=== PATIENT | female | born 1980 | race Caucasian/White ===

== ENCOUNTER 2018-02-04 10:40 | Day surgery (SDC) | payer OTHER ==
[2018-02-04] MEDS ORDERED: D5 LR 1000 ML 1,000 ML IV ONE ×2 (11:09→11:28)
[2018-02-04] MEDS ORDERED: DIPRIVAN VIAL 20 ML ONE (12:15)
[2018-02-04 14:23] VITALS: BP 125/74
== END 2018-02-04 13:00 | disposition home or self-care (01) ==
LOC: SURG1 10:40
PROVIDERS: ATTEND Internal Medicine Gastroenterology
PROC: 0DB68ZX Excision of Stomach, Via Natural or Artificial Opening Endoscopic, Diagnostic (ICD-10-PCS; principal; 2018-02-04 15:00)
PROC: 0DB88ZX Excision of Small Intestine, Via Natural or Artificial Opening Endoscopic, Diagnostic (ICD-10-PCS; principal; 2018-02-04 15:00)
PROC: 0DJ08ZZ Inspection of Upper Intestinal Tract, Via Natural or Artificial Opening Endoscopic (ICD-10-PCS; principal; 2018-02-04 15:00)
PROC: 0D757ZZ Dilation of Esophagus, Via Natural or Artificial Opening (ICD-10-PCS; principal; 2018-02-04 15:00)
PROC: 0DB58ZX Excision of Esophagus, Via Natural or Artificial Opening Endoscopic, Diagnostic (ICD-10-PCS; principal; 2018-02-04 15:00)
DX: R13.19 Other dysphagia (principal); R11.0 Nausea; R10.13 Epigastric pain; K21.9 Gastro-esophageal reflux disease without esophagitis; K22.2 Esophageal obstruction; K20.8 Other esophagitis; K22.4 Dyskinesia of esophagus; K29.60 Other gastritis without bleeding; R10.84 Generalized abdominal pain; K22.8 Other specified diseases of esophagus
CPT/HCPCS: A4217; J3490; J7120